=== PATIENT | female | born 1950 | race Two or more races ===

== ENCOUNTER 2019-04-01 23:23 | Inpatient (IN) | payer OTHER ==
[~2019-04-01] VITALS: Ht 142.2 cm; Wt 77.2 kg
--- NOTE | 2019-04-01 23:36 | NUR ---
JOHNNY. REPORT RECEIVED FROM EMS. PT FELL AT [facility] AT [facility]. PT MISSED 1 STEP. DENIES LOC/HIT ON HEAD. PT C/O L HIP PAIN. SMALL ABRASION ON R FOREARM. 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 BENGALI SPEAKING. BP/SPO2 MONITORS IN PLACE. CALL LIGHT WITHIN REACH. PA AT BEDSIDE TO EVALUATE AT THIS TIME. FAMILY MEMBER AT BEDSIDE.
--- NOTE | 2019-04-01 23:44 | NUR ---
PT TO XRAY AT THIS TIME.
--- NOTE | 2019-04-02 00:02 | NUR ---
PT BACK TO ROOM FROM XRAY AT THIS TIME.
--- NOTE | 2019-04-02 00:17 | NUR ---
PT REFUSED PAIN MED AT THIS TIME.
[2019-04-02] MEDS ORDERED: MORPHINE SULFATE 4 MG/ML, 1ML ONE ×2 (00:29→03:30)
--- NOTE | 2019-04-02 00:36 | NUR ---
PT REQUESTING PAIN MED AT THIS TIME. PT MEDICATED PER EMAR. PT TOLERATED WELL.
--- NOTE | 2019-04-02 01:00 | NUR ---
ASSUMED CARE OF PATIENT
--- NOTE | 2019-04-02 01:26 | NUR ---
PATIENT RESTING IN ROOM. REGULAR RESP. NO ACUTE DISTRESS NOTED. CALL LIGHT IN PLACE. WILL CONTINUE TO MONITOR.
[2019-04-02] MEDS ORDERED: TAMS-11 PO (01:45)
[2019-04-02] MEDS ORDERED: HYDR-3240 PO (01:45)
--- NOTE | 2019-04-02 02:57 | NUR ---
PATRICIA PEREZ IN ROOM UPDATING PATIENT. PATIENT TO GET A CT.
[2019-04-02] MEDS ORDERED: MORPHINE SULFATE 4 MG/ML, 1ML IVPush PRN ×3 (03:00→03:30)
[2019-04-02 04:14] LABS: BASOPHILS # (AUTO) 0.04 x10^3/uL (0-0.1); BASOPHILS % (AUTO) 0 % (0-1); EOSINOPHILS # (AUTO) 0.03 x10^3/uL (0-0.4); EOSINOPHILS % (AUTO) 0 % (1-7); LYMPHOCYTES % (AUTO) 12 % (22-44); MD NO; MEAN CORPUSCULAR HEMOGLOBIN 26.3 pg (27.0-34.8); MEAN CORPUSCULAR HGB CONC 32.1 g/dL (32.4-35.8); MEAN CORPUSCULAR VOLUME 82.1 fL (80-100); MEAN PLATELET VOLUME 10.1 fL (7.4-10.4); MONOCYTES # (AUTO) 0.91 x10^3/uL (0.2-0.8); MONOCYTES % (AUTO) 8 % (2-9); NEUTROPHILS # (AUTO) 8.58 x10^3/uL (1.8-6.8); NEUTROPHILS % (AUTO) 79 % (42-75); PLATELET COUNT 259 x10^3/uL (130-400); RED BLOOD COUNT 4.03 x10^6/uL (3.82-5.3); RED CELL DISTRIBUTION WIDTH 18.1 % (9.6-15.2)
[2019-04-02 04:24] LABS: INTERNATIONAL NORMALIZED RATIO 0.93 (0.93-1.1); PROTHROMBIN TIME 9.8 Seconds (9.6-11.5)
[2019-04-02 04:26] LABS: ALANINE AMINOTRANSFERASE 19 U/L (12-78); ALBUMIN 2.9 g/dL (3.4-5.0); ANION GAP 6 mmol/L (5-15); CALCIUM 8.5 mg/dL (8.5-10.1); CHLORIDE 107 mmol/L (98-107); CREATININE 0.78 mg/dL (0.55-1.02)
[2019-04-02 04:28] LABS: ALKALINE PHOSPHATASE 83 U/L (45-117); BILIRUBIN,TOTAL 0.4 mg/dL (0.2-1.0); TOTAL PROTEIN 6.7 g/dL (6.4-8.2)
[2019-04-02] MEDS ORDERED: NEOSPORIN OINT. PKT 1 PACKET ONE (04:39)
--- NOTE | 2019-04-02 04:47 | NUR ---
PATRICIA PEREZ IN ROOM UPDATING PATIENT.
[2019-04-02 05:16] VITALS: BP 120/76
[2019-04-02] MEDS ORDERED: morphine SULFATE 10 MG/ML, 1ML IVPush PRN ×2 (06:00→08:00)
[2019-04-02 07:39] VITALS: BP 113/63
[2019-04-02] MEDS: ENOXAPARIN 40 MG/0.4 ML SQ SCH (08:00)
[2019-04-02] MEDS ORDERED: ACETAMINOPHEN 325 MG TABLET PO PRN (08:00)
[2019-04-02] MEDS ORDERED: ONDANSETRON ODT 4 MG PO PRN (08:00)
[2019-04-02] MEDS ORDERED: ONDANSETRON 2MG/ML, 2ML IVPush PRN (08:00)
[2019-04-02] MEDS ORDERED: KETOROLAC 30 MG/1 ML IV PRN (08:00)
[2019-04-02] MEDS: CALCIUM/VITAMIN D3 250-125 TABLET PO SCH ×2 (09:00→20:26)
[2019-04-02] MEDS: SENNA/DOCUSATE TABLET PO SCH (09:00)
[2019-04-02] MEDS: SODIUM CHLORIDE 0.9% 1,000 ML IV SCH (09:43)
[2019-04-02 13:30] VITALS: BP 117/70
[2019-04-02 21:58] VITALS: BP 110/66
[2019-04-03] MEDS: SODIUM CHLORIDE 0.9% 1,000 ML IV SCH (00:47)
[2019-04-03 00:49] VITALS: BP 117/75
[2019-04-03] MEDS ORDERED: ALENDRONATE 10 MG TABLET PO SCH (06:30)
[2019-04-03 07:04] LABS: ANION GAP 3 mmol/L (5-15); CALCIUM 8.5 mg/dL (8.5-10.1); CHLORIDE 109 mmol/L (98-107)
[2019-04-03 07:05] LABS: BASOPHILS # (AUTO) 0.03 x10^3/uL (0-0.1); BASOPHILS % (AUTO) 0 % (0-1); EOSINOPHILS # (AUTO) 0.27 x10^3/uL (0-0.4); EOSINOPHILS % (AUTO) 4 % (1-7); LYMPHOCYTES # (AUTO) 1.84 x10^3/uL (1-3.4); LYMPHOCYTES % (AUTO) 30 % (22-44); MD NO; MEAN CORPUSCULAR HEMOGLOBIN 26.5 pg (27.0-34.8); MEAN CORPUSCULAR HGB CONC 32.1 g/dL (32.4-35.8); MEAN CORPUSCULAR VOLUME 82.5 fL (80-100); MEAN PLATELET VOLUME 9.4 fL (7.4-10.4); MONOCYTES # (AUTO) 0.81 x10^3/uL (0.2-0.8); MONOCYTES % (AUTO) 13 % (2-9); NEUTROPHILS # (AUTO) 3.21 x10^3/uL (1.8-6.8); NEUTROPHILS % (AUTO) 52 % (42-75); PLATELET COUNT 242 x10^3/uL (130-400); RED BLOOD COUNT 3.91 x10^6/uL (3.82-5.3); RED CELL DISTRIBUTION WIDTH 18.6 % (9.6-15.2)
[2019-04-03 07:07] LABS: CREATININE 0.59 mg/dL (0.55-1.02)
[2019-04-03 07:51] VITALS: BP 103/62
[2019-04-03] MEDS: SENNA/DOCUSATE TABLET PO SCH (08:37)
[2019-04-03] MEDS: ENOXAPARIN 40 MG/0.4 ML SQ SCH (08:37)
[2019-04-03] MEDS: CALCIUM/VITAMIN D3 250-125 TABLET PO SCH (08:37)
[2019-04-03 12:05] VITALS: BP 113/63
== END 2019-04-03 17:55 | disposition home or self-care (01) | DRG 965 ==
LOC: ED 04-02 01:56 → EDIP 04-02 04:36 → 4NE 04-02 05:10
PROVIDERS: ADMIT Family Medicine; ATTEND Family Medicine
DX: S32.602A Unspecified fracture of left ischium, initial encounter for closed fracture (principal); S72.114A Nondisplaced fracture of greater trochanter of right femur, initial encounter for closed fracture; G89.11 Acute pain due to trauma; M54.40 Lumbago with sciatica, unspecified side; M85.80 Other specified disorders of bone density and structure, unspecified site; W18.39XA Other fall on same level, initial encounter; Y93.89 Activity, other specified; Y92.89 Other specified places as the place of occurrence of the external cause; Y99.8 Other external cause status; Z80.0 Family history of malignant neoplasm of digestive organs; Z96.653 Presence of artificial knee joint, bilateral
CPT/HCPCS: 36415; 72110; 72131; 72192; 80048; 80053; 85025; 85610; 85730; 93005; G0378; J1650; J1885; J2270; J7030